=== PATIENT | male | born 1935 | race Caucasian/White ===

== ENCOUNTER 2017-01-25 16:43 | Inpatient (IN) | payer MEDICARE ==
[2017-01-25] MEDS ORDERED: Sodium Chloride 0.9% 5 ML Syringe FLUSH PRN (16:53)
[2017-01-25] MEDS ORDERED: Acetaminophen 500 MG Tab PO PRN (16:59)
[2017-01-25] MEDS: Enoxaparin 100 MG/1 ML Syringe SUBCUT SCH (17:19)
[2017-01-25] MEDS: Levofloxacin 500 MG Tab PO SCH (17:43)
[2017-01-25] MEDS: Rivaroxaban 10 MG Tab PO SCH (17:44)
[2017-01-26] MEDS: Enoxaparin 100 MG/1 ML Syringe SUBCUT SCH (05:42)
[2017-01-26] MEDS: Rivaroxaban 10 MG Tab PO SCH ×2 (07:58→17:49)
[2017-01-26] MEDS ORDERED: Acetaminophen 500 MG Tab PO PRN (08:10)
[2017-01-26 08:19] LABS: CHLORIDE,CL 102 mmol/L (98-115); SODIUM,NA 139 mmol/L (136-145)
[2017-01-26] MEDS: Cetirizine 10 MG Tab PO SCH (11:40)
[2017-01-26] MEDS: Levofloxacin 500 MG Tab PO SCH (17:49)
[2017-01-27] MEDS: Cetirizine 10 MG Tab PO SCH (08:33)
[2017-01-27] MEDS: Rivaroxaban 10 MG Tab PO SCH ×2 (08:34→17:17)
--- NOTE | 2017-01-27 10:41 | PN ---
01/26/2017 PATIENT NAME: RICHARD BANKS CHIEF COMPLAINT: Ongoing left-sided thoracic chest wall pain on inspiration, along with hemoptysis and bloody cough. HISTORY: This very pleasant 81-year-old gentleman was admitted by Dr. Casey Selby for acute pulmonary embolism. He was seen at the [facility] having a long history of cough, weakness, hemoptysis, and just generalized not doing well. He also has some chest pain and has some mild shortness of breath. The patient was admitted to [facility] and treated for pneumonia back in November. He said he was not getting better since discharge and states that he was getting gradually worse. He had been on antibiotics, which he stated he had completed a 5-day course of Levaquin. He also was on clindamycin. His daughter states that he has just been declining over the past 2 months, losing weight, fatigued. He was evaluated by Michelle Weldon at the [facility], and she discussed this case with Dr. Casey Selby. At that time, a chest CT was done, which did demonstrate the patient to have a pulmonary embolism on his right side as demonstrated by a filling defect identified within the mid to distal right main pulmonary artery. The patient was subsequently admitted to the hospital for low-molecular weight along with other anticoagulation and further monitoring with telemetry and oxygen and pulmonary support. The patient does not have any history of DVT or pulmonary embolism or any family history of clotting disorders. No pain in his legs. No swelling. No provoking identifiable cause at this time. PHYSICAL EXAMINATION: VITAL SIGNS: Temperature 98.7, blood pressure 145/82, respiratory rate 16, O2 sats 93% to 94% on room air. GENERAL: He is alert and oriented. LUNGS: Right lower base, some crackles noted. CV: Regular rate and rhythm. ABDOMEN: Good bowel tones. Nontender. EXTREMITIES: Lower extremities, negative Homans bilaterally. No edema. No palpable cord. No redness. No swelling noted. Good distal pulses. HEENT: Negative. No jaundice. LABORATORY DATA: White count, hemoglobin, hematocrit, percentage of neutrophils normal. Sodium, potassium, BUN, creatinine, electrolytes normal. 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 Urinalysis, unremarkable other than trace of occult blood. IMPRESSION AND PLAN: 1. Acute pulmonary embolism, right pulmonary artery. No evidence of cardiac strain. He was started on Xarelto b.i.d. dosing, we will continue that for 3 weeks, then daily dosing. Discontinue Lovenox. Continue on telemetry. Tylenol for pain. Monitor for any cardiovascular compromise. The patient has been educated extensively regarding the risk versus benefit of Xarelto, and he does agree to continue treatment. No provoking circumstances. However, we will add AMANDA stockings. Likely, he will have to have ultrasounds of bilateral lower extremities. 2. Chronic problems. Essential hypertension appears well controlled at this time. Gilbert syndrome, he has no jaundice. Hyperlipidemia. OVERALL PLAN: Continue to educate regarding high-risk medications. Continue with Xarelto. Continue with telemetry. Ambulate in the [place]. AMANDA stockings. Likely next week, he will receive ultrasounds of the lower extremities. Monitor for any ongoing hemodynamic instability. /[id number]/MODL
--- NOTE | 2017-01-27 11:26 | PN ---
01/27/2017 PATIENT NAME: RICHARD BANKS CHIEF COMPLAINT: Overall feels better, some mild hemoptysis, however less. His pain in his right chest area is less. He has been walking around the [place]. No fever. No leg swelling. No ectopy on cardiac telemetry. HISTORY: This 81-year-old gentleman was admitted by Dr. Buzz Selby, for right pulmonary artery pulmonary embolism, acute, he was started on anticoagulation, he was initially started on low-molecular weight heparin, that has subsequently been discontinued. He had been treated for pneumonia back in November at [facility]. The CT did show a pulmonary embolism. The patient had been having hemoptysis now for some time, just overall declining weight, more shortness of breath, more fatigued, and some chest pain. PHYSICAL EXAMINATION: VITAL SIGNS: Temperature 97.4, heart rate 68, blood pressure 123/74, O2 sats now with 1 L of oxygen 94 to 95. No ectopy on cardiac telemetry. CARDIOVASCULAR: Regular rate and rhythm, however, does have a skipped beat about every fifth beat. LUNGS: Ongoing mild atelectasis and crackles noted in right lower lung base and his right mid thoracic flank area, however fairly well pulmonary excursion. ABDOMEN: Soft and nontender. LOWER EXTREMITIES. Good pulses. No redness or swelling. Negative Homans bilaterally on yesterday's exam. LABORATORY DATA: White count 6.1, hemoglobin and hematocrit were normal. Sodium, potassium, BUN, and creatinine were normal. AST of 44. He does have a history of Gilbert's syndrome. IMPRESSION/PLAN: 1. High-risk medication with Xarelto. 2. Acute pulmonary embolism, ongoing treatment with Xarelto. Lovenox was discontinued yesterday. He will receive b.i.d. dosing for two to three weeks and then daily dosing at 20 mg daily, Jerrod stockings, be scheduled for bilateral lower extremity ultrasound to rule out any deep vein thrombosis. The patient has no history of protein C and S, or any other blood clotting coagulopathies, no family history, unprovoked. Today, we will continue with telemetry, walk around the [place], monitor for any blood pressure systolic compromise, or any active ongoing chest pain. The patient has been educated extensively regarding risks versus benefit of Xarelto and he does desire to continue treatment. 3. History of hypertension, this is stable. 4. Gilbert's syndrome. He has no jaundice. AST slightly elevated. No vomiting. OVERALL PLAN: Likely he will be discharge tomorrow. He will need ultrasounds of his bilateral lower extremities. /[id number]/MODL
[2017-01-27] MEDS: Levofloxacin 500 MG Tab PO SCH (17:17)
[2017-01-28] MEDS: Cetirizine 10 MG Tab PO SCH (08:30)
[2017-01-28] MEDS: Rivaroxaban 10 MG Tab PO SCH (08:31)
[2017-01-28 11:32] VITALS: BP 148/95
--- NOTE | 2017-01-29 08:47 | DISCH ---
FINAL DIAGNOSES: Pulmonary embolism, right pulmonary artery with hemoptysis, rule out deep vein thrombosis, history of hypertension stable, Gilbert's syndrome, no jaundice, high-risk medication. BRIEF HISTORY: This 81-year-old gentleman was admitted by Dr. Selby for right pulmonary artery and pulmonary embolism, it was acute. He was started on anticoagulation. He was initially also started on low molecular weight heparin that had been discontinued in the hospital. The patient had been treated for pneumonia in November in [facility]; however, the patient did have ongoing symptoms. He was seen by the [facility] provider in [facility] due to worsening hemoptysis and just declining weight, short of breath, more fatigued with some ongoing right-sided chest pain. Again, CT did show pulmonary embolism without cor pulmonale. No cardiac strain. HOSPITAL COURSE: Quite uneventful. He remained on telemetry throughout his hospital stay. No ectopy. No signs of right-sided heart failure. Blood pressure and mean arterial pressure remained adequate. He did require 1 L of oxygen to keep sats at 95%. He was ambulatory around the hospital that was discontinued prior to him being discharged. He did have some ongoing hemoptysis; however, it was scant upon discharge. He did not require any hemodynamic support. He was treated with low molecular weight heparin initially that was subsequently discontinued after 24 hours. He was treated with Factor Xa inhibitor and Xarelto 15 mg p.o. b.i.d. He will take this dose for a total of 21 days and then he will begin with 20 mg p.o. daily. He was given extensive education regarding high-risk medication and he does desire to continue with this. AMANDA stockings were applied while in the hospital. The patient does not have any history of protein C or S or any other blood clotting coagulopathies. So as of today, this is an unprovoked PE; however, he will be scheduled for bilateral venous Doppler ultrasound for checking DVTs at [facility]. He does have Gilbert syndrome; however, he never had any jaundice or any vomiting. His AST was slightly elevated. The patient had completed a course of Levaquin; however, discontinued while he was in the hospital. This was discontinued on discharge. PHYSICAL EXAMINATION: VITAL SIGNS: Vital signs on discharge; O2 sats 94% on room air, temperature 97.1, heart rate 77, blood pressure 131/82 with a mean arterial pressure of 98. LUNGS: Normal pulmonary excursion; however, does have some crackles, right mid to lower lobe. CV: Regular rate and rhythm. No murmur. LOWER EXTREMITIES: No palpable cord. No edema. No redness or swelling. Negative Homans sign bilaterally. LABS: White count 7.4, hemoglobin 15.9, neutrophils 70.5. Sodium, potassium, BUN, and creatinine normal with a creatinine clearance of 57. Urinalysis showed some small occult blood, trace; however, insignificant. AST slightly elevated at 44. MEDICATIONS ON DISCHARGE: Xarelto 15 mg p.o. b.i.d., total of 21 days and then change to Xarelto 20 mg p.o. daily, two refills given. Discontinue aspirin. He can continue on all other home meds. DISPOSITION: The patient will be discharged from the hospital. He was given specific instructions to monitor for any worsening cough, shortness of breath, chest pain, swelling in the legs, worsening hemoptysis, blood in sputum, or coughing up blood. Follow up with Michelle Weldon NP at the end of the week. CONSIDERATIONS AT FOLLOWUP: Follow up on bilateral venous Doppler ultrasound results if needed. Re-educated regarding high-risk medication use. Repeat UA , due to hematuria and has smoking history. MEDICAL DECISION MAKIN minutes was spent on this discharge planning process, pharmacy consultation, and the patient's extensive education and set up referrals and Doppler ultrasound. /[id number]/MODL MTDD
== END 2017-01-28 11:25 | disposition home or self-care (01) | DRG 176 ==
LOC: KA.MS 16:43
PROVIDERS: ADMIT Family Medicine; ATTEND Family Medicine
DX: I26.99 Other pulmonary embolism without acute cor pulmonale (principal); R04.2 Hemoptysis; I10 Essential (primary) hypertension; E80.4 Gilbert syndrome; E78.5 Hyperlipidemia, unspecified; Z79.899 Other long term (current) drug therapy; Z87.891 Personal history of nicotine dependence
CPT/HCPCS: 36415; 80053; 81001; 85025; 93005; A9270-GY; J1650

== ENCOUNTER 2021-07-15 12:18 | Emergency (ER) | payer MEDICARE ==
--- NOTE | 2021-07-15 13:01 | EDM.PDOC ---
ED HPI GENERAL MEDICAL PROBLEM - General Chief Complaint: General Stated Complaint: COLD, FLU-LIKE SYMPTOMS Time Seen by Provider: 07/15/21 12:43 Source of Information: Reports: Patient, Family (dtr) History Limitations: Reports: No Limitations - History of Present Illness INITIAL COMMENTS - FREE TEXT/NARRATIVE: Patient presents with fatigue, low-grade fever (99-100.2), cough, decreased appetite, diarrhea (twice). This started 3-4 days ago. He isn't drinking much water either. - Related Data Allergies Allergy/AdvReac Type Severity Reaction Status Date / Time No Known Allergies Allergy Verified 07/15/21 12:33 Home Meds: Home Meds Acetaminophen 1,000 mg PO Q6H PRN 01/25/17 [History] Dimethicone/Gly/Pet,Wh/Urea [Lubriderm Skin Nourishing Lotion] 1 applic TOP TID 01/25/17 [History] Losartan Potassium [Cozaar] 50 mg PO DAILY 07/15/21 [History] Naproxen Sodium [Aleve] 440 mg PO BID PRN 07/15/21 [History] Simvastatin [Zocor] 20 mg PO BEDTIME 07/15/21 [History] Tamsulosin HCl [Flomax] 0.4 mg PO BEDTIME 07/15/21 [History] Warfarin [Coumadin] 2.5 mg PO ASDIRECTED 07/15/21 [History] hydrOXYzine pamoate [Hydroxyzine Pamoate] 25 mg PO BID 07/15/21 [History] hydroCHLOROthiazide [Hydrochlorothiazide] 12.5 mg PO DAILY 07/15/21 [History] Past Medical History HEENT History: Reports: Impaired Vision, Other (See Below) Other HEENT History: full upper dentures, partial lower dentures Cardiovascular History: Reports: SOB on Exertion Respiratory History: Reports: PE, SOB Gastrointestinal History: Reports: None Dermatologic History: Reports: Urticaria, Other (See Below) Other Dermatologic History: all over rash to body - Past Surgical History HEENT Surgical History: Reports: None Cardiovascular Surgical History: Reports: None Respiratory Surgical History: Reports: None GI Surgical History: Reports: Hernia, Inguinal Social & Family History - Family History Family Medical History: No Pertinent Family History - Tobacco Use Tobacco Use Status *Q: Former Tobacco User Used Tobacco, but Quit: Yes Month/Year Tobacco Last Used: quit long time ago - Caffeine Use Caffeine Use: Reports: Soda - Recreational Drug Use Recreational Drug Use: No ED ROS GENERAL - Review of Systems Review Of Systems: See Below Constitutional: Reports: Fever, Malaise, Weakness, Fatigue, Decreased Appetite HEENT: Denies: Ear Pain, Throat Pain, Vision Change Respiratory: Reports: Cough. Denies: Shortness of Breath Cardiovascular: Denies: Chest Pain, Lightheadedness, Syncope Endocrine: Reports: Fatigue GI/Abdominal: Reports: Diarrhea. Denies: Abdominal Pain, Vomiting : Denies: Dysuria Musculoskeletal: Reports: No Symptoms Skin: Denies: Cyanosis, Jaundice, Mottled, Pallor, Diaphoresis Neurological: Denies: Confusion, Seizure, Trouble Speaking Psychiatric: Denies: Agitation, Anxiety ED EXAM, GENERAL - Physical Exam Exam: See Below Exam Limited By: No Limitations General Appearance: Alert, WD/WN, No Apparent Distress Eye Exam: Bilateral Eye: EOMI, Normal Inspection, PERRL Ears: Normal External Exam, Hearing Grossly Normal Nose: Normal Inspection, No Blood Throat/Mouth: Normal Inspection, Normal Lips, Normal Voice, No Airway Compromise Head: Atraumatic, Normocephalic Neck: Normal Inspection, Full Range of Motion Respiratory/Chest: No Respiratory Distress, No Accessory Muscle Use, Crackles (quite significant in right base). No: Rhonchi, Wheezing, Stridor Cardiovascular: Normal Peripheral Pulses, Regular Rate, Rhythm, No Edema, No Murmur Peripheral Pulses: 2+: Radial (L), Radial (R), Posterior Tibial (L), Posterior Tibial (R) GI/Abdominal: Normal Bowel Sounds, Soft, Non-Tender, No Organomegaly, No Distention Back Exam: Normal Inspection, Full Range of Motion. No: CVA Tenderness (L), CVA Tenderness (R) Extremities: Normal Inspection, Normal Range of Motion, Non-Tender, No Pedal Edema Neurological: Alert, Oriented, Normal Cognition, No Motor/Sensory Deficits Psychiatric: Normal Affect, Normal Mood Skin Exam: Warm, Dry, Intact, Normal Color, No Rash Course - Vital Signs Last Recorded V/S: Last Vital Signs Temp 96.7 F L 07/15/21 12:33 Pulse 70 07/15/21 14:00 Resp 18 07/15/21 12:33 BP 111/59 L 07/15/21 14:00 Pulse Ox 94 L 07/15/21 14:00 - Orders/Labs/Meds Orders: Active Orders 24 hr Category Date Time Status Peripheral IV Care [RC] . DIRECTED Care 07/15/21 12:58 Active Sodium Chloride 0.9% [Saline Flush] Med 07/15/21 12:58 Active 10 ml FLUSH Q8HR PRN Peripheral IV Insertion Adult [OM.PC] Routine Oth 07/15/21 12:58 Ordered Medication Orders Sodium Chloride (Sodium Chloride 0.9% 10 Ml Syringe) 10 ml FLUSH Q8HR PRN PRN Reason: keep vein open Last Admin: 07/15/21 13:09 Dose: 10 ml Documented by: LANEY Labs: Laboratory Tests 07/15/21 07/15/21 07/15/21 Range/Units 12:55 13:05 13:05 WBC 5.97 (5.00-10.00) 10^3/uL RBC 5.73 (4.50-6.00) 10^6/uL Hgb 16.5 (13.0-17.0) g/dL Hct 49.4 (40.0-52.0) % MCV 86.2 (82.0-92.0) fL MCH 28.8 (27.0-31.0) pg MCHC 33.4 (32.0-36.0) g/dL RDW 13.8 (11.5-14.5) % Plt Count 162 (150-400) 10^3/uL MPV 9.9 (7.4-10.4) fL Immature Gran % (Auto) 0.5 (0.0-5.0) % Neut % (Auto) 77.8 H (50.0-70.0) % Lymph % (Auto) 10.9 L (20.0-40.0) % [place] % (Auto) 10.4 H (2.0-8.0) % Eos % (Auto) 0.2 L (1.0-3.0) % Baso % (Auto) 0.2 (0.0-1.0) % Neut # (Auto) 4.65 (2.50-7.00) 10^3/uL Lymph # (Auto) 0.65 L (1.00-4.00) 10^3/uL [place] # (Auto) 0.62 (0.10-0.80) 10^3/uL Eos # (Auto) 0.01 L (0.10-0.30) 10^3/uL Baso # (Auto) 0.01 (0.00-0.10) 10^3/uL Immature Gran # (Auto) 0.03 (0.00-0.50) 10^3/uL Sodium 136 (136-145) mmol/L Potassium 2.7 L (3.5-5.1) mmol/L Chloride 95 L (98-107) mmol/L Carbon Dioxide 27.0 (21.0-32.0) mmol/L Anion Gap 16.7 H (5-15) mmol/L BUN 58 H* (7-18) mg/dL Creatinine 1.48 H (0.51-1.17) mg/dL Est Cr Clr Drug Dosing 35.90 mL/min Estimated GFR (MDRD) 45 mL/min Glucose 86 (70-140) mg/dL Lactic Acid (0.4-2.0) mmol/L Calcium 8.6 L (8.7-10.3) mg/dL Total Bilirubin 1.3 H (0.2-1.0) mg/dL AST 58 H (15-37) U/L ALT 27 (14-63) U/L Alkaline Phosphatase 57 (46-116) U/L Total Protein 7.2 (6.4-8.2) g/dL Albumin 3.10 L (3.40-5.00) g/dL Influenza Type A RNA Positive H (NEGATIVE) RSV RNA (INAAT) Negative (NEGATIVE) Influenza Type B RNA Negative (NEGATIVE) SARS-CoV-2 RNA (FLACA) Negative (NEGATIVE) 07/15/21 Range/Units 13:05 WBC (5.00-10.00) 10^3/uL RBC (4.50-6.00) 10^6/uL Hgb (13.0-17.0) g/dL Hct (40.0-52.0) % MCV (82.0-92.0) fL MCH (27.0-31.0) pg MCHC (32.0-36.0) g/dL RDW (11.5-14.5) % Plt Count (150-400) 10^3/uL MPV (7.4-10.4) fL Immature Gran % (Auto) (0.0-5.0) % Neut % (Auto) (50.0-70.0) % Lymph % (Auto) (20.0-40.0) % [place] % (Auto) (2.0-8.0) % Eos % (Auto) (1.0-3.0) % Baso % (Auto) (0.0-1.0) % Neut # (Auto) (2.50-7.00) 10^3/uL Lymph # (Auto) (1.00-4.00) 10^3/uL [place] # (Auto) (0.10-0.80) 10^3/uL Eos # (Auto) (0.10-0.30) 10^3/uL Baso # (Auto) (0.00-0.10) 10^3/uL Immature Gran # (Auto) (0.00-0.50) 10^3/uL Sodium (136-145) mmol/L Potassium (3.5-5.1) mmol/L Chloride (98-107) mmol/L Carbon Dioxide (21.0-32.0) mmol/L Anion Gap (5-15) mmol/L BUN (7-18) mg/dL Creatinine (0.51-1.17) mg/dL Est Cr Clr Drug Dosing mL/min Estimated GFR (MDRD) mL/min Glucose (70-140) mg/dL Lactic Acid 1.5 (0.4-2.0) mmol/L Calcium (8.7-10.3) mg/dL Total Bilirubin (0.2-1.0) mg/dL AST (15-37) U/L ALT (14-63) U/L Alkaline Phosphatase (46-116) U/L Total Protein (6.4-8.2) g/dL Albumin (3.40-5.00) g/dL Influenza Type A RNA (NEGATIVE) RSV RNA (INAAT) (NEGATIVE) Influenza Type B RNA (NEGATIVE) SARS-CoV-2 RNA (FLACA) (NEGATIVE) Meds: Medications Generic Name Dose Route Start Last Admin Trade Name Freq PRN Reason Stop Dose Admin Sodium Chloride 10 ml 07/15/21 12:58 07/15/21 13:09 Sodium Chloride 0.9% 10 Ml Syringe FLUSH 10 ml Q8HR PRN Administration keep vein open Discontinued Medications Generic Name Dose Route Start Last Admin Trade Name Roxane PRN Reason Stop Dose Admin Azithromycin 750 mg 07/15/21 13:51 07/15/21 14:04 Azithromycin 250 Mg Tab PO 07/15/21 13:52 750 mg ONETIME ONE Administration Cefdinir 600 mg 07/15/21 13:51 07/15/21 14:03 Cefdinir 300 Mg Cap PO 07/15/21 13:52 600 mg ONETIME ONE Administration Ceftriaxone Sodium 1 gm 07/15/21 13:51 07/15/21 14:03 Ceftriaxone 1 Gm Vial IVPUSH 07/15/21 13:52 1 gm ONETIME ONE Administration Sodium Chloride 1,000 mls @ 999 mls/hr 07/15/21 12:54 07/15/21 13:08 Normal Saline IV 07/15/21 13:54 999 mls/hr .BOLUS ONE Administration - Re-Assessments/Exams Free Text/Narrative Re-Assessment/Exam: 07/15/21 14:21 Influenza A positive. Negative covid. CBC okay. BUN and Creatinine are elevated some. CXR shows subtle linear opacities in right lung base that could be an early pneumonia. Discussed findings and treatment plan with patient and his daughter. Also discussed case with Dr. Kaufman. Treating pnemonia with Rocephin 1 gm IVP and Zithromax 500 mg po in ER. Sending home Omnicef 300 mg bid tomorrow and Zithromax 250 mg tomorrow. Rx's for Omnicef 300 mg #14, one bid for 7 days, and Zithromax 250 mg #3, one qd x 3 days. Instructed patient to hold his Hydroxyzine while taking these antibiotics. His daughter knows which one it is and will help him with it. Patient will increase water intake and follow up with PCP on Saturday for recheck. Discharged to home in stable condition. Departure - Departure Time of Disposition: 14:19 Disposition: Home, Self-Care 01 Condition: Good Clinical Impression: Influenza A CAP (community acquired pneumonia) Qualifiers: Laterality: right Lung location: lower lobe of lung Qualified Code(s): J18.9 - Pneumonia, unspecified organism - Discharge Information Instructions: Influenza, Adult, [id number] Referrals: Loren Weldon, CLINICAL INFORMATICS STRATEGIST [Primary Care Provider] - Forms: ED Department Discharge Additional Instructions: Drink 8 cups of water daily. Take the antibiotics as directed. Stop your Hydroxyzine until the antibiotics are done. Follow up with your PCP on Saturday for recheck of kidney function and overall progress with pneumonia and influenza. If worsening, recheck in clinic or ER as needed. Sepsis Event Note (ED) - Evaluation Sepsis Screening Result: No Definite Risk - Focused Exam Vital Signs: Vital Signs Temp Pulse Resp BP Pulse Ox 07/15/21 14:00 70 111/59 L 94 L 07/15/21 13:45 71 111/58 L 93 L 07/15/21 13:30 69 102/54 L 94 L 07/15/21 13:20 66 94/52 L 92 L 07/15/21 13:00 72 100/61 92 L 07/15/21 12:45 76 103/57 L 92 L 07/15/21 12:33 96.7 F L 77 18 122/66 92 L - My Orders Last 24 Hours: My Active Orders 07/15/21 12:58 Peripheral IV Care [RC] . DIRECTED Sodium Chloride 0.9% [Saline Flush] 10 ml FLUSH Q8HR PRN Peripheral IV Insertion Adult [OM.PC] Routine - Assessment/Plan Last 24 Hours: My Active Orders 07/15/21 12:58 Peripheral IV Care [RC] . DIRECTED Sodium Chloride 0.9% [Saline Flush] 10 ml FLUSH Q8HR PRN Peripheral IV Insertion Adult [OM.PC] Routine
[2021-07-15] MEDS: Sodium Chloride 0.9% 1,000 ML IV ONE (13:08)
[2021-07-15] MEDS: Sodium Chloride 0.9% 10 ML Syringe FLUSH PRN (13:09)
[2021-07-15 13:38] LABS: ANION GAP 16.7 mmol/L (5-15)
--- NOTE | 2021-07-15 13:41 | CR ---
[id number] RAD/RAD Chest PA or AP 1V EXAM: RAD Chest PA or AP 1V INDICATION: COUGH,RIGHT LOWER LOBE CRACKLES. COMPARISON: None. DISCUSSION/IMPRESSION: Cardiomediastinal silhouette is normal in size and contour. Subtle linear opacities in the right lung base. Findings are nonspecific and possibly atelectasis. Correlate for signs of infection as it could represent early/mild changes of developing pneumonia. Lungs are otherwise clear. No pleural effusion or pneumothorax. Kobi Ortiz MD 07/15/21 [id number] Thank you for allowing us to participate in the care of your patient.
[2021-07-15 13:49] LABS: CORONAVIRUS COVID-19 NAA NEGATIVE (NEGATIVE)
[2021-07-15 13:50] LABS: RESPIRATORY SYNCYTIAL VIR NAA NEGATIVE (NEGATIVE)
[2021-07-15] MEDS: Cefdinir 300 MG Cap PO ONE (14:03)
[2021-07-15] MEDS: cefTRIAXone 1 GM Vial IVPUSH ONE (14:03)
[2021-07-15] MEDS: Azithromycin 250 MG Tab PO ONE (14:04)
[2021-07-15 14:15] VITALS: BP 111/59; PULSE 70
== END 2021-07-15 14:30 | disposition home or self-care (01) ==
LOC: KA.ED 12:18
DX: J10.00 Influenza due to other identified influenza virus with unspecified type of pneumonia (principal); Z79.01 Long term (current) use of anticoagulants; Z87.891 Personal history of nicotine dependence; Z20.822 Contact with and (suspected) exposure to COVID-19
CPT/HCPCS: 0241U; 36415; 71045; 80053; 83605; 85025; 96374; 99284; 99284-25; A9270-GY; J0696; J7030

== ENCOUNTER 2022-02-10 11:12 | Emergency (ER) | payer MEDICARE ==
[2022-02-10 11:27] VITALS: BP 140/86; PULSE 111
[2022-02-10] MEDS ORDERED: Sodium Chloride 0.9% 10 ML Syringe FLUSH PRN (11:30)
[2022-02-10] MEDS ORDERED: Sodium Chloride 0.9% 1,000 ML IV ONE (11:33)
== END 2022-02-10 13:25 | disposition home or self-care (01) ==
LOC: KA.ED 11:12
DX: R53.1 Weakness (principal); S51.011A Laceration without foreign body of right elbow, initial encounter; E86.0 Dehydration; Z79.01 Long term (current) use of anticoagulants; Z79.899 Other long term (current) drug therapy; W19.XXXA Unspecified fall, initial encounter
CPT/HCPCS: 36415; 72100; 80053; 82550; 85025; 85610; 96360; 99284; 99285-25; J3490; J7030